=== PATIENT | male | born 1980 | race Caucasian/White ===

== ENCOUNTER 2022-03-25 17:19 | Emergency (ER) | payer MEDICAID ==
[~2022-03-25] VITALS: Ht 175.3 cm; Wt 95.3 kg
[2022-03-25 17:35] VITALS: BP_SYST 111
--- NOTE | 2022-03-25 18:11 | NUR ---
Pt presents to the ER bib self CC left hip pain 04/19 Pt notes throbbing, sharp pain radiating to groin and left teste, radiating down to achilles. Calf pain has been excruciating to sit long period of time with pressure building, NVD, Skin intact, no recent falls. Pt is AAox4 respiratory even and unlabored. PmHx No NKA
--- NOTE | 2022-03-25 18:14 | NUR ---
MADE CALL OUT TO KRISTEN SMITH, NO ANSWER X1
--- NOTE | 2022-03-25 18:17 | NUR ---
Pedal pulses present, capillary return <3sec. VSS.
--- NOTE | 2022-03-25 18:30 | NUR ---
ER at bedside examining patient.
[2022-03-25] MEDS ORDERED: ONDANSETRON HCL 4 MG/2 ML VIAL IVP ONE (19:00)
[2022-03-25] MEDS ORDERED: MORPHINE 2 MG/ML INJ. SYRINGE IVP ONE (19:00)
[2022-03-25] MEDS ORDERED: NACL 0.9% 1,000 ML IV ONE (19:00)
--- NOTE | 2022-03-25 19:20 | NUR ---
Pt at ultrasound with animal husbandry technician.
--- NOTE | 2022-03-25 19:22 | NUR ---
RECIEVED REPORT FROM RICHA ACHARYA WILL ASSUME ALL CARE OF PATIENT AT THIS TIME
[2022-03-25] MEDS ORDERED: iohexoL 300 mgI/mL, 150 ML INFUS..BTL IV ONE (19:51)
--- NOTE | 2022-03-25 19:55 | NUR ---
patient off unit to ct scan
[2022-03-25 20:05] LABS: BASOPHILS # (AUTO) 0.1 K/uL (0.0-0.2); BASOPHILS % (AUTO) 1.4 % (0.0-2.0); EOSINOPHILS # (AUTO) 0.1 K/uL (0.0-0.4); EOSINOPHILS % (AUTO) 1.6 % (0.0-4.0); HEMATOCRIT 42.4 % (36-54); HEMOGLOBIN 14.5 g/dL (14.0-18.0); LYMPHOCYTES # (AUTO) 2.2 K/uL (1.0-5.5); LYMPHOCYTES % (AUTO) 36.3 % (20.5-51.5); MEAN CORPUSCULAR HEMOGLOBIN 32 pg (27-31); MEAN CORPUSCULAR HGB CONC 34 % (32-36); MEAN CORPUSCULAR VOLUME 95 fL (79.0-98.0); MONOCYTES # (AUTO) 0.4 K/uL (0.0-1.0); MONOCYTES % (AUTO) 7.3 % (1.7-9.3); NEUTROPHILS # (AUTO) 3.2 K/uL (1.8-7.7); NEUTROPHILS % (AUTO) 53.4 % (40.0-70.0); PLATELET COUNT (AUTO) 207 K/uL (130-430); RED BLOOD CELL COUNT(AUTO) 4.49 MIL/uL (4.2-6.2); RED CELL DISTRIBUTION WIDTH 13.4 % (9.0-15.0)
--- NOTE | 2022-03-25 20:10 | NUR ---
patient returned from ct scan
[2022-03-25 20:29] LABS: CALCIUM 9.2 mg/dL (8.4-11.0); CREATININE 0.89 mg/dL (0.55-1.30)
[2022-03-25 20:34] LABS: ALBUMIN 3.7 g/dL (3.4-4.8); TOTAL BILIRUBIN 0.5 mg/dL (0.0-1.0)
[2022-03-25] MEDS ORDERED: PRED20TA PO (21:43)
[2022-03-25] MEDS ORDERED: BACL10TA PO (21:43)
[2022-03-25] MEDS ORDERED: IBUP-1970 PO (21:43)
[2022-03-25] MEDS ORDERED: GABA800T PO (21:43)
[2022-03-25] MEDS ORDERED: LIDOINT TP (21:43)
[2022-03-25 21:48] LABS: BILIRUBIN,URINE NEGATIVE (NEGATIVE); BLOOD, URINE NEGATIVE (NEGATIVE); CLARITY/URINE CLEAR (CLEAR); COLOR,URINE YELLOW (YELLOW); GLUCOSE,URINE NEGATIVE (NEGATIVE); KETONES,URINE NEGATIVE (NEGATIVE); LEUKOCYTE ESTERASE ,URINE NEGATIVE (NEGATIVE); NITRITE, URINE NEGATIVE (NEGATIVE); PROTEIN URINE NEGATIVE (NEGATIVE); UROBILINOGEN,URINE 0.2 (0.2-1.0)
[2022-03-25 22:16] VITALS: BP_SYST 112
--- NOTE | 2022-03-25 22:16 | NUR ---
Patient given written and verbal discharge instructions and verbalizes understanding. ER MD discussed with patient the results and treatment provided. Patient in stable condition. ID arm band removed. IV catheter removed intact and dressing applied, no active bleeding. Rx of baclofen, gabapentin, ibuprofen, lidocaine, prednisone given. Patient educated on pain management and to follow up with PMD. Pain Scale 0/10 Opportunity for questions provided and answered. Medication side effect fact sheet provided.
== END 2022-03-25 22:16 | disposition home or self-care (01) ==
LOC: SED 17:19
DX: M54.42 Lumbago with sciatica, left side (principal); M25.552 Pain in left hip; M79.652 Pain in left thigh; Z79.899 Other long term (current) drug therapy
CPT/HCPCS: 99285; 96374; 72193; 93971; 96361; 96375; 80053; 85025; 36415; 76376; 81003; Q9967; J2405; J2270; J7030